=== PATIENT | male | born 1980 | race Caucasian/White ===

== ENCOUNTER 2019-03-27 21:05 | Emergency (ER) | payer MEDICAID ==
[2019-03-27] MEDS: IBUPROFEN 800 MG TAB PO (22:04)
== END 2019-03-27 23:45 | disposition home or self-care (01) ==
LOC: FTE 23:45
DX: S89.92XA Unspecified injury of left lower leg, initial encounter (principal); W16.022A Fall into swimming pool striking bottom causing other injury, initial encounter; Y92.34 Swimming pool (public) as the place of occurrence of the external cause
CPT/HCPCS: 29505; 73562; 99283-25